=== PATIENT | female | born 1960 | race Caucasian/White ===

== ENCOUNTER → 2017-08-30 | Outpatient (CLI) | payer BC ==
[~2017-08-30] MED LIST: ACIDOPHILUS PO; ADIPEX-P37.5 MG; ADIPEX-P37.5 MG PO; AMBIEN CR6.25 MG PO; AMITIZA24 MCG PO; ASPIRIN 81M81 MG/TA2 PO; CALCIUM 600600 MG PO; CALCIUM500 MG PO; CIPRO 500MG TA500 MG PO; CIPRO500 MG PO; CLARITIN 1010 MG/TAB PO; CLARITIN D TAB1 TAB PO; CLONAZEPAM1 MG PO; CLONIDINE0.1 MG PO; COLACE 100100 MG/CAP PO; CYMBALTA 30MG30 MG PO; CYMBALTA 60MG60 MG PO; CYMBALTA30 MG PO; CYMBALTA60 MG PO; DESYREL 50MG50 MG PO; DIFLUCAN 100MG100 MG PO; ELMIRON 10100 MG/CA1 PO; ENJUVIA0.625 MG PO; FIBER TABLETS1 TAB PO; FISH OIL CONC1000 MG PO; FISH OIL1000 MG PO; FLAGYL 250250 MG/TAB; FLEXERIL10 MG PO; FLONASE0.05 MG/AC NS; GABAPENTIN100 MG PO; GLUCOPHAGE500 MG/TAB PO; HCTZ 25MG TAB25 MG PO; HCTZ 25MG25 MG PO; HCTZ12.5TAB PO; JANUVIA100 MG PO; KLONOPIN 1MG1 MG PO; LEVSIN0.125 M1 PO; LISINOPRIL30 MG PO; LORTAB 10/500 51 TAB PO; LORTAB 5/500 501 TAB PO; MACRODANTIN100 PO; MELATONIN3 M1 PO; MELATONIN5 MG PO; METFORMIN500 MG PO; MOTRIN 200200 MG/TAB PO; MOTRIN 800800 MG/TAB PO; MULTIPLE VITAMI1 TAB PO; NAPROSYN500 MG; NAPROSYN500 MG PO; NEOSPORIN1 OI1 TP; NEURONTIN400 MG/CAP PO; NORCO 325 MG-101 TAB PO; NORCO 325 MG-51 TAB PO; NORCO 325 MG-7.1 TAB PO; ORAJEL10% MM; PRELIEF PO; PREMARIN0.3 MG PO; PRIL40 PO; PYRIDIUM 100MG100 MG PO; PYRIDIUM200 M1 PO; ROXICODONE 55 MG/TAB PO; SIMVASTATIN40 MG PO; ST. JOSEPH81 M2 PO; STOOL SOFTENER100 M1 PO; STOOL SOFTENER100 M2 PO; SUPER B COMPLEX1 TA2 PO; TOPROL XL 50MG50 MG PO; VITAMIN B COMPL1 TA1 PO; VITAMIN C BUFF500 MG PO; VITAMIN C500 MG PO; VITAMIN D31000 I1 PO; VITAMIN D32000 IU PO; VITAMIN D3400 IU PO; ZESTRIL 10MG10 MG PO; ZESTRIL30 MG PO; ZOCOR 40MG40 MG PO
== END ==
LOC: MC.RAD 08:57
DX: Z12.31 Encounter for screening mammogram for malignant neoplasm of breast (principal)

== ENCOUNTER 2018-12-06 06:08 | Day surgery (SDC) | payer BC, OTHER ==
[~2018-12-06] VITALS: Ht 160 cm; Wt 104.4 kg
[~2018-12-06 06:08] MED LIST changes: +MELATONIN5 M1 SL; -MELATONIN5 MG PO
[2018-12-06] MEDS ORDERED: PRINIVIL40 MG PO (06:35)
[2018-12-06] MEDS ORDERED: OSCAL 500 TAB500 MG PO (06:37)
[2018-12-06] MEDS ORDERED: DESYREL 100MG100 MG PO (06:37)
[2018-12-06] MEDS ORDERED: BREO IH (06:38)
[2018-12-06] MEDS ORDERED: PROAIR HFA0.09 MG/AC IH (06:38)
[2018-12-06] MEDS ORDERED: MASON NATURAL500 MG PO (06:38)
[2018-12-06] MEDS ORDERED: FLONASE NASAL S16 GM NS (06:38)
[2018-12-06] MEDS ORDERED: EPA FISH OIL1 SGL PO (06:39)
[2018-12-06] MEDS ORDERED: ZANTAC 150MG T150 MG PO (06:39)
[2018-12-06] MEDS ORDERED: TYLENOL 8 HR PO (06:39)
[2018-12-06 06:56] VITALS: BP 140/69; PULSE 87; TEMP 98.2
[2018-12-06 09:15] VITALS: PULSE 112; TEMP 97.2
--- NOTE | 2018-12-06 09:15 | NUR ---
The patient returned to [place] from [facility] at this time. The patient apepars to have an increased cough and has already received a breathing treatment in the endoscopy suite. The patient has oxygen in place at 5L per oxymask. The patient's vital signs were attempted to be obtained but due to her cough the dynamap was unable to complete her blood pressure at this time. The patient's family is at her bedside at this time. Call light is within reach. Will continue to monitor the patient.
--- NOTE | 2018-12-06 09:26 | NUR ---
GIVEN TO BONIFACIO AT BEDSIDE POST PROCEDURE.
[2018-12-06 09:30] VITALS: BP 141/99; PULSE 129
--- NOTE | 2018-12-06 09:30 | NUR ---
The patient is sitting up in bed and continues to have an increased cough. The patient's family remains at her bedside. The patient states that she wants some "liquid medicine" for her cough. Will continue monitor the patient.
[2018-12-06 09:45] VITALS: BP 139/96; PULSE 112
--- NOTE | 2018-12-06 09:45 | NUR ---
The patient was given a dose of Codeine with Phenergan [address] Dominguez. She was also placed on 3L of oxygen kristan nasal cannula and appears to be tolerating it well. The patient's viral nasal swab was completed at this time. Family remains at her bedside. Will continue to monitor the patient.
[2018-12-06 10:00] VITALS: BP 121/46; PULSE 101
--- NOTE | 2018-12-06 10:00 | NUR ---
The patient states her "cough is getting better". Vital signs appear stable. Call light is within reach. Will continue to monitor the patient.
[2018-12-06 10:30] VITALS: BP 109/59; PULSE 96
--- NOTE | 2018-12-06 10:30 | NUR ---
Dr. Dominguez is at the patient's bedside to evaluate the patient for discharge to home. The patient verbalizes a desire to be discharged home.
--- NOTE | 2018-12-06 10:40 | NUR ---
Discharge instructions were reviewed with the patient and her family at this time. They all verbalized understanding and have no questions for the nurse at this time. The patient's IV to her right hand was removed and a pressure dressing was applied to the site. The nurse instructed the patient to get dressed and notify the staff when she is ready to be escorted out.
--- NOTE | 2018-12-06 10:47 | NUR ---
The patient was escorted out via wheelchair to a private vehicle by JESÚS Yonug. The patient was discharged on her home oxygen per nasal cannula. The patient's belongings and discharge paperwork were sent with her. The patient's family is present to drive her home.
== END 2018-12-06 10:47 | disposition home or self-care (01) ==
LOC: SDCO 06:08
DX: C34.31 Malignant neoplasm of lower lobe, right bronchus or lung (principal); J18.1 Lobar pneumonia, unspecified organism; Z87.891 Personal history of nicotine dependence; Z77.22 Contact with and (suspected) exposure to environmental tobacco smoke (acute) (chronic); J45.30 Mild persistent asthma, uncomplicated; E11.9 Type 2 diabetes mellitus without complications; Z79.899 Other long term (current) drug therapy; Z79.82 Long term (current) use of aspirin; G47.33 Obstructive sleep apnea (adult) (pediatric); G47.10 Hypersomnia, unspecified; G47.00 Insomnia, unspecified; K44.9 Diaphragmatic hernia without obstruction or gangrene; G25.81 Restless legs syndrome; M54.5 Low back pain; N30.10 Interstitial cystitis (chronic) without hematuria; M79.662 Pain in left lower leg; M79.661 Pain in right lower leg; M79.7 Fibromyalgia
CPT/HCPCS: J2704; J7120

== ENCOUNTER 2018-12-13 14:07 | Inpatient (IN) | payer BC, OTHER ==
[~2018-12-13] VITALS: Ht 152.4 cm; Wt 104.8 kg
[~2018-12-13 14:07] MED LIST changes: +BREO IH; +DESYREL 100MG100 MG PO; +EPA FISH OIL1 SGL PO; +FLONASE NASAL S16 GM NS; +MASON NATURAL500 MG PO; +OSCAL 500 TAB500 MG PO; +PRINIVIL40 MG PO; +PROAIR HFA0.09 MG/AC IH; +TYLENOL 8 HR PO; +ZANTAC 150MG T150 MG PO
[2018-12-13 14:33] LABS: BASO % 0.2 % (0.0-2.0); EOS # 0.1 (0.0-0.7); EOS % 0.6 % (0-4.0); GRAN # 10.3 (1.4-6.5); GRAN % 78.1 % (42.2-75.2); HEMATOCRIT 42.4 % (37.0-47.0); LYMPH # 1.8 (1.2-3.4); LYMPH % 13.6 % (20.0-51.0); MEAN CELL VOLUME 85 fl (80.0-100.0); MEAN CORPUSCULAR HEMOGLOBIN 28 pg (27.0-31.0); MEAN CORPUSCULAR HGB CONC 33 g/dl (33.0-37.0); MEAN PLATELET VOLUME 9.8 fl (7.4-10.4); MONO # 0.9 (0.1-0.6); MONO % 7.1 % (1.7-9.3); PLATELET COUNT 321 K/mm3 (130-400); RED BLOOD COUNT 4.99 M/mm3 (4.10-5.30); REDCELL DISTRIBUTION WIDTH-CV 14.7 % (11.5-14.5)
[2018-12-13 14:43] LABS: PROTHROMBIN TIME 11.6 SECONDS (9.7-12.8)
[2018-12-13 15:48] LABS: ALANINE AMINOTRANSFERASE 39 U/L (9-52); ALBUMIN 3.9 gm/dL (3.5-5.0); ALKALINE PHOSPHATASE 112 U/L (50-136); ANION GAP 11 mmol/L (7-16); AST,SGOT 24 U/L (15-37); BILIRUBIN,TOTAL 0.6 mg/dL (0.0-1.0); BLOOD UREA NITROGEN 17 mg/dL (7-17); CALCIUM 9.2 mg/dL (8.4-10.2); CARBON DIOXIDE 26 mmol/L (22-30); CHLORIDE 96 mmol/L (98-107); CREATININE, serum 0.53 mg/dL (0.52-1.25); GLUCOSE 157 mg/dL (74-106); POTASSIUM 4.2 mmol/L (3.4-5.0); SODIUM 132 mmol/L (137-145); TOTAL PROTEIN 7.2 gm/dL (6.4-8.2)
[2018-12-13] MEDS ORDERED: LIPITOR 40MG TA40 MG PO (15:59)
[2018-12-13] MEDS ORDERED: MELATONIN5 M1 SL (16:01)
[2018-12-13] MEDS ORDERED: TYLENOL 8 HR PO ×2 (16:01→16:03)
[2018-12-13 16:04] LABS: TROPONIN-I < 0.012 ng/mL (0.000-0.035)
[2018-12-13 18:05] VITALS: BP 174/76; PULSE 134; TEMP 98.3
--- NOTE | 2018-12-13 18:05 | NUR ---
Report received from laboratory associate, Gloria at 1708. Pt arrived to ICU bed 6 from ER via stretcher. Pt sitting up. States her breathing feels better after bipap in ER. Pt able to move over to ICU bed with assistance. Increased SOB after movement. Pt placed on Bipap mask by Respiratory therapy and HOB up at 90 degrees. Plan of care discussed with pt r/t intubation, bronchoscopy, central line and arterial line. Pt verbalizes understanding. Dr Dominguez and anesthesia notified of pt's arrival.
--- NOTE | 2018-12-13 18:20 | NUR ---
PT INTUBATED AT THIS TIME BY ANESTHESIA. DR. THOMAS AT BEDSIDE. PLACEMENT VISUALIZED BY COMMUNITY RELATIONS REPRESENTATIVE VIA GLIDASCOPE. CO2 DETECTOR WITH CONSISTANT COLOR CHANGE. BSH. CXR PENDING. ART AND CENTRAL LINES BEING PLACED AT THIS TIME. OETT SECURED 24CM @TEETH. PT PLACED ON SETTINGS PREVIOUSLY GIVEN BY DR. THOMAS. CMV 24, VT 450, +8 AND 60%. ABG IS ALSO PENDING AT THIS TIME.
--- NOTE | 2018-12-13 19:30 | NUR ---
Bedside report given to SIENA Hancock.
--- NOTE | 2018-12-13 19:30 | NUR ---
Rigoberto Olguin CRNA and Dr Dominguez at bedside at 1810. GEREMIAS Franklin intubated pt with 8.0 ETT, measured 23 @ teeth. Bilat breath sounds present. Total of 100mcg fentanyl, 2mg Versed, 20mg vecuronium, 15mg Etomidate and 50 mg propofol given. Please see Emar. OGT placed at 55cm at teeth. Placement checked by auscultation, and to LIS. small amt greenish drainage out of OGT. 16 fr swain placed with sterile technique and dark yellow, clear urine out. Left radial Nirmala place at 1840 by Rigoberto Olguin CRNA. Nirmala leveled and zeroed with good waveform. right SC TLC placed by Dr Dominguez at 1845. Bronchoscopy at bedside by Dr Dominguez at 1854. Small amt of blood tinged fluid sent to lab. Pt to CT of chest on monitor via icu bed at 1906. Pt remains sedated with propofol and fentanyl gtts. Pt HR ST 120s on monitor during CT. BP stable. Pt returned to ICU bed [address] at 1930.
--- NOTE | 2018-12-13 19:40 | NUR ---
PT TAKEN TO CT FOR SCAN OF CHEST. PT MANUALLY VENTILATED THERE AND BACK WITHOUT INCIDENT. PT PLACED BACK ON PREVIOUS SETTINGS UPON ARRIVAL BACK TO ICU. PT HANDED OFF TO HANNAH LORENZO.
[2018-12-13 20:00] VITALS: BP 114/82; PULSE 112; TEMP 98.5
--- NOTE | 2018-12-13 20:00 | NUR ---
Assessment completed and charted at this time, please see documentation for details. Patient tolerating ventilator well at this time. Dr. Dominguez outside of room at this time, patient at bedside. Dr. Burciaga has been notified for need for chest tube for patient. Will continue to monitor and assess.
[2018-12-13 20:10] VITALS: BP 174/76; PULSE 134; TEMP 98.3
[2018-12-13 20:20] LABS: ARTERIAL BLD GAS TCO2 CT 23.2; ARTERIAL BLOOD GAS BASE EXCESS -3.6 (-2-2); ARTERIAL BLOOD GAS HCO3 21.9 meq/L (22-26); ARTERIAL BLOOD GAS PCO2 41.7 mmHg (35-45); ARTERIAL BLOOD GAS pH 7.34 (7.35-7.45)
[2018-12-13 20:21] LABS: ARTERIAL BLOOD GAS PO2 135.9 mmHg (80-100)
--- NOTE | 2018-12-13 20:55 | NUR ---
Dr. Burciaga to perform right sided chest tube placement at this time, please see his notes for details. Patient tolerated well, will place to 20 cm water seal per Dr. Burciaga and continue to monitor.
[2018-12-13 23:13] LABS: PLEURAL FLUID RBC 132000 /mm3 (0-0); PLEURAL FLUID WBC 813 /mm3
[2018-12-13 23:16] LABS: GLUCOSE,PLEURAL FLUID 96 mg/dL; TOTAL PROTEIN,PLEURAL FLUID 4.6 gm/dL
[2018-12-13 23:48] LABS: PLEURAL FLUID APPEARANCE TURBID; PLEURAL FLUID COLOR RED
[2018-12-14] VITALS: BP 103/63; PULSE 80; TEMP 98.2
[2018-12-14 00:59] LABS: ARTERIAL BLOOD GAS PCO2 32.7 mmHg (35-45)
[2018-12-14 01:00] LABS: ARTERIAL BLD GAS O2 SATURATION 93.7 % (92-100); ARTERIAL BLOOD GAS HCO3 19.9 meq/L (22-26); ARTERIAL BLOOD GAS PO2 74.5 mmHg (80-100)
--- NOTE | 2018-12-14 01:11 | NUR ---
12/13/18 @ 2013 PT SETTINGS CHANGED TO DOCUMENTED SETTINGS PER DR. THOMAS. PREVIOUS SETTINGS WERE VT 420, RR 24, PEEP 5, 100% FIO2. SETTINGS WERE CHANGED DUE TO INCREASED PEAK AIRWAY PRESSURES. DR. THOMAS HAS ALSO SAID TO CALL ALL ABG RESULTS TO [facility] OVER THE NIGHT. HE WILL BE BACK IN AT 0800 12/14/18 TO VIEW OVERNIGHT RESULTS AND CHANGES. PT IS DOING WELL WITH CURRENT CHANGES. ABG TO BE DRAWN AND RESULTS TO BE CALLED TO [facility] AT 2030
--- NOTE | 2018-12-14 02:18 | NUR ---
12/13/18 @ 2044 PLEURAL FLUID SAMPLE GIVEN TO THIS RT TO RUN FOR A PH. NOT A CRITICLE VALUE CALLED RN WITH RESULT COMPUTER PROBLEMS MAKE IT UNABLE TO PUT INTO COMPUTER AT THIS TIME WILL ASSESS AND TRY TO FIX IN THE A.M
--- NOTE | 2018-12-14 02:22 | NUR ---
NO ORAL CARE DONE BY MERY YOUNG ON 12/13/18 WILL BEGIN 12/14/18
[2018-12-14 04:00] VITALS: BP 103/63; PULSE 90
--- NOTE | 2018-12-14 05:09 | NUR ---
Patient easily aroused on sedation. Combative to ventilator at times, no sedation vacation at this time.
[2018-12-14 05:38] LABS: ARTERIAL BLD GAS O2 SATURATION 90.4 % (92-100); ARTERIAL BLD GAS TCO2 CT 22.7; ARTERIAL BLOOD GAS BASE EXCESS -3.7 (-2-2); ARTERIAL BLOOD GAS HCO3 21.5 meq/L (22-26); ARTERIAL BLOOD GAS PCO2 39.7 mmHg (35-45); ARTERIAL BLOOD GAS PO2 65.6 mmHg (80-100); ARTERIAL BLOOD GAS pH 7.35 (7.35-7.45)
[2018-12-14 05:43] LABS: MEAN CELL VOLUME 86 fl (80.0-100.0); MEAN CORPUSCULAR HGB CONC 33 g/dl (33.0-37.0); PLATELET COUNT 269 K/mm3 (130-400); RED BLOOD COUNT 4.16 M/mm3 (4.10-5.30); REDCELL DISTRIBUTION WIDTH-CV 14.6 % (11.5-14.5)
--- NOTE | 2018-12-14 05:46 | NUR ---
PT HAS NOT BEEN INTUBATED FOR 24 HOURS THEREFORE NO WEANING ASSESSMENT HAS BEEN TRIED AND PT IS TO REMAIN ON DOCUMENTED SETTINGS.
[2018-12-14 05:47] LABS: INR 1.1 (0.8-3.0); PROTHROMBIN TIME 12.5 SECONDS (9.7-12.8)
[2018-12-14 05:49] LABS: HEMATOCRIT 35.8 % (37.0-47.0); HEMOGLOBIN 11.8 g/dl (12.5-16.0); MEAN CORPUSCULAR HEMOGLOBIN 28 pg (27.0-31.0)
[2018-12-14 05:53] LABS: ALANINE AMINOTRANSFERASE 35 U/L (9-52); ALBUMIN 3.2 gm/dL (3.5-5.0); ALKALINE PHOSPHATASE 81 U/L (50-136); ANION GAP 10 mmol/L (7-16); AST,SGOT 22 U/L (15-37); BILIRUBIN,TOTAL 0.3 mg/dL (0.0-1.0); BLOOD UREA NITROGEN 24 mg/dL (7-17); CALCIUM 8.4 mg/dL (8.4-10.2); CARBON DIOXIDE 21 mmol/L (22-30); CHLORIDE 100 mmol/L (98-107); CREATININE, serum 0.85 mg/dL (0.52-1.25); GLUCOSE 221 mg/dL (74-106); MAGNESIUM 1.9 mg/dL (1.6-2.3); PHOSPHOROUS 4.5 mg/dL (2.5-4.5); POTASSIUM 4.1 mmol/L (3.4-5.0); SODIUM 132 mmol/L (137-145); TOTAL PROTEIN 5.9 gm/dL (6.4-8.2)
[2018-12-14 06:11] LABS: TROPONIN-I < 0.012 ng/mL (0.000-0.035)
--- NOTE | 2018-12-14 07:30 | NUR ---
Report received from Santi WREN and care resumed.
--- NOTE | 2018-12-14 07:55 | NUR ---
Dr Dominguez in to see pt at this time. Vent changes made and RT notified.
[2018-12-14 08:00] VITALS: BP 114/56; PULSE 89; TEMP 97.1
--- NOTE | 2018-12-14 08:04 | NUR ---
PT'S SETTINGS CHANGED AT THIS TIME PER DR. THOMAS AT BEDSIDE.
[2018-12-14 08:25] LABS: BAND 2 % (0-10); LYMPHOCYTE 6 % (20.0-51.0); NEUTROPHILS 92 % (42.0-75.2)
[2018-12-14 08:26] LABS: PLATELET ESTIMATE NORMAL (NORMAL)
--- NOTE | 2018-12-14 09:50 | NUR ---
Dr Burciaga in to see pt. Verbal order received to place chest tube to suction.
--- NOTE | 2018-12-14 10:50 | NUR ---
SW attended clinical rounds, then met with patient's and family in the waiting room. Patient lives at home with her . She does not use any home health services. She does use oxygen at home but no other medical equipment. Patient's reports she doesn't have a DPOA for healthcare decisions. SEJAL informed him that if they were interested in that the form can be provided. No other needs at this time but SW will continue to follow.
--- NOTE | 2018-12-14 11:00 | NUR ---
Dr Bowie in to see pt at this time.
[2018-12-14 11:53] LABS: ARTERIAL BLD GAS O2 SATURATION 94.4 % (92-100); ARTERIAL BLD GAS TCO2 CT 22.2; ARTERIAL BLOOD GAS BASE EXCESS -2.8 (-2-2); ARTERIAL BLOOD GAS HCO3 21.2 meq/L (22-26); ARTERIAL BLOOD GAS PCO2 33.9 mmHg (35-45); ARTERIAL BLOOD GAS PO2 75.3 mmHg (80-100); ARTERIAL BLOOD GAS pH 7.41 (7.35-7.45)
[2018-12-14 12:00] VITALS: BP 94/45; PULSE 70; TEMP 96.3
--- NOTE | 2018-12-14 12:20 | NUR ---
Pt continues to wake with speech and is able to follow simple commands. Denies any pain. IV fentanly remains infusing. VSS. Family at bedside and updated on plan of care. Will continue to follow.
[2018-12-14 16:00] VITALS: BP 105/51; PULSE 87; TEMP 98.1
--- NOTE | 2018-12-14 17:20 | NUR ---
Pt fully awake with sedation vacation and able to follow simple commands. Pt coughing alot and becomes very anxious. Sedation turned back up as no plans to wean or extubate today per Dr Dominguez. Will continue to follow.
--- NOTE | 2018-12-14 19:02 | NUR ---
Report given to Santi WREN and care transfered.
--- NOTE | 2018-12-14 19:44 | NUR ---
Patient assessment completed and charted at this time, please see documentation for details. Patient resting in bed, tolerating ventilator well at this time. at bedside, questions and concerns addressed, will continue to monitor and assess.
[2018-12-14 20:00] VITALS: BP 107/55; PULSE 78; TEMP 97.5
[2018-12-15] VITALS: BP 117/64; PULSE 72; TEMP 97
--- NOTE | 2018-12-15 03:50 | NUR ---
Patient tolerating ventilator adequately at this time. Arouses easily. Assessment completed, no acute findings. Will continue to monitor and assess.
[2018-12-15 04:00] VITALS: BP 117/70; PULSE 92; TEMP 98
[2018-12-15 04:53] LABS: HEMOGLOBIN 11.3 g/dl (12.5-16.0); MEAN CELL VOLUME 88 fl (80.0-100.0); MEAN CORPUSCULAR HEMOGLOBIN 29 pg (27.0-31.0); MEAN CORPUSCULAR HGB CONC 33 g/dl (33.0-37.0); PLATELET COUNT 298 K/mm3 (130-400); RED BLOOD COUNT 3.95 M/mm3 (4.10-5.30); REDCELL DISTRIBUTION WIDTH-CV 14.6 % (11.5-14.5)
[2018-12-15 04:56] LABS: HEMATOCRIT 34.6 % (37.0-47.0)
--- NOTE | 2018-12-15 05:00 | NUR ---
Patient arouses easily, fighting ventilator when not sedated. No sedation vacation performed at this time.
[2018-12-15 05:06] LABS: BILIRUBIN,TOTAL 0.2 mg/dL (0.0-1.0); CALCIUM 7.6 mg/dL (8.4-10.2); CREATININE, serum 0.59 mg/dL (0.52-1.25); MAGNESIUM 2.2 mg/dL (1.6-2.3); PHOSPHOROUS 3.7 mg/dL (2.5-4.5); POTASSIUM 4.1 mmol/L (3.4-5.0); TOTAL PROTEIN 5.9 gm/dL (6.4-8.2)
[2018-12-15 05:11] LABS: PROTHROMBIN TIME 11.6 SECONDS (9.7-12.8)
[2018-12-15 05:12] LABS: BAND 3 % (0-10); LYMPHOCYTE 10 % (20.0-51.0); NEUTROPHILS 85 % (42.0-75.2); PLATELET ESTIMATE NORMAL (NORMAL)
[2018-12-15 05:13] LABS: HYPOCHROMIA 1+
[2018-12-15 05:14] LABS: OVALOCYTES 1+
[2018-12-15 05:48] LABS: ARTERIAL BLD GAS O2 SATURATION 95.6 % (92-100); ARTERIAL BLD GAS TCO2 CT 19.9; ARTERIAL BLOOD GAS BASE EXCESS -6.7 (-2-2); ARTERIAL BLOOD GAS HCO3 18.7 meq/L (22-26); ARTERIAL BLOOD GAS PO2 89.6 mmHg (80-100); ARTERIAL BLOOD GAS pH 7.32 (7.35-7.45)
--- NOTE | 2018-12-15 06:27 | NUR ---
PER RN PATIENT NOT GETTING A SEDATION VACATION THEREFORE SMART CARE WAS NOT DONE. PT REMAINED ON DOCUMENTED SETTINGS. NO DISTRESS NOTED.
--- NOTE | 2018-12-15 07:04 | NUR ---
Report given to SIENA Rhoades at this time. Passing off cares of patient.
--- NOTE | 2018-12-15 07:20 | NUR ---
Report received from Santi WREN and care resumed.
--- NOTE | 2018-12-15 07:50 | NUR ---
Dr Dominguez in to see pt at this time.
[2018-12-15 08:00] VITALS: BP 119/43; PULSE 103; TEMP 96.7
[2018-12-15 08:11] LABS: ARTERIAL BLD GAS O2 SATURATION 93.3 % (92-100); ARTERIAL BLD GAS TCO2 CT 20.2; ARTERIAL BLOOD GAS BASE EXCESS -6.5 (-2-2); ARTERIAL BLOOD GAS HCO3 19.1 meq/L (22-26); ARTERIAL BLOOD GAS PO2 75.1 mmHg (80-100); ARTERIAL BLOOD GAS pH 7.32 (7.35-7.45)
[2018-12-15 09:17] LABS: TRIGLYCERIDE 590 mg/dL
[2018-12-15 09:32] LABS: ACETONE,SERUM NEGATIVE
[2018-12-15 09:33] LABS: CREATINE KINASE 51 U/L (30-135)
--- NOTE | 2018-12-15 11:20 | NUR ---
Dr Bowie in to see pt at this time.
--- NOTE | 2018-12-15 11:35 | NUR ---
Dr Burciaga in to see pt.
[2018-12-15 12:00] VITALS: BP 118/53; PULSE 94; TEMP 97.2
--- NOTE | 2018-12-15 12:20 | NUR ---
Assessment complete. Pt continues to get very restless/agitated with stimuli. 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 Will continue to titrate versed as needed for RASS -2.
[2018-12-15 16:00] VITALS: BP 136/57; PULSE 83; TEMP 98.8
--- NOTE | 2018-12-15 16:20 | NUR ---
Dr Singleton in to see pt at this time. Did talk with family and stated not alot he could do at this time with pt being so sick but that he would continue to follow and check in. Questions answered. Will continue to follow.
--- NOTE | 2018-12-15 16:49 | NUR ---
Report given to Mac WREN and sona tranferred.
--- NOTE | 2018-12-15 17:10 | NUR ---
Report recieved from SIENA Rhoades. Pt hypertensive up into the systolic>200 when pt turned with observed aggitation. After pt left undisturbed systolic BP was in 120's.
--- NOTE | 2018-12-15 19:30 | NUR ---
Bedside report received from SIENA Watts. All lines and medications reviewed. Transfer of care at this time.
[2018-12-15 20:00] VITALS: BP 119/68; PULSE 85; TEMP 97.9
--- NOTE | 2018-12-15 20:00 | NUR ---
Patient is resting on the vent at this time. She is very alert and follows commands. Patient attempts to spell out words on this nurse's arm. She spells out the word "poo". Patient cleaned up using wipes and pericare provided. Assessment reveals coarse lungs sounds with wheezes in the upper lobes. Patient has hypoactive bowel sounds. NG tube is at 45cm even with securement. Advanced tube to 60cm and resecured. Checked placement with gastric residuals pulled back as well as auscultation. Patient has no complaints of pain at this time, she shakes her head no when asked. Repositioned for comfort. No further needs at this time. Will continue to monitor. Call light within reach.
[2018-12-16] VITALS: BP 121/62; PULSE 76; TEMP 99
--- NOTE | 2018-12-16 | NUR ---
Assessment complete. Patient is much more alert and restless at this time. She tries to sit all the way forward on the vent and swings her legs to the side of the bed. Versed drip increased and patient repositioned in bed. Attempted to reorient the patient multiple times, but she just shakes her head no and tries to sit forward pulling on the restraints. RT at the bedside to help calm patient. Patient finally starts to settle down after Versed increase kicks in. Patient now resting quietly on the vent, she is relaxed and still arousable. No other needs at this time. Will continue to monitor. Call light within reach.
[2018-12-16 04:00] VITALS: BP 122/70; PULSE 92; TEMP 98.8
--- NOTE | 2018-12-16 04:00 | NUR ---
Assessment complete. Patient resting in bed on the ventilator. She opens her eyes to any sound or movement in the room. Patient continues to follow commands. Lungs remain coarse and diminished. No complaints of pain at this time. Vital signs stable. No further needs. Will continue to monitor. Call light within reach.
--- NOTE | 2018-12-16 04:50 | NUR ---
Patient requesting to be cleaned up at this time. Pericare provided. When turning the patient she starts coughing against and fighting the ventilator. Patient repositioned and SIENA Malone and this nurse attempted to reorient and talk patient down to breathing with the machine and relaxing. Patient remained agitated and began sitting upright on the vent and trying to get out of bed. Patient pulled at restraints and tried swinging her legs off of the bed. Versed increased to 10mg. Patient slowly became less agitate, but remains restless. Patient is now max dosage on fentanyl and versed. Will call [facility] for order of precedex.
--- NOTE | 2018-12-16 05:05 | NUR ---
Called [facility] at this time and spoke with Dr. Chapman. Patient is on max doses for fentanyl and versed. Requesting Precedex drip to be added. Dr. Chapman states that he will put in orders.
[2018-12-16 05:08] LABS: HEMOGLOBIN 10.7 g/dl (12.5-16.0); MEAN CELL VOLUME 87 fl (80.0-100.0); MEAN CORPUSCULAR HEMOGLOBIN 28 pg (27.0-31.0); MEAN CORPUSCULAR HGB CONC 32 g/dl (33.0-37.0); MEAN PLATELET VOLUME 10.4 fl (7.4-10.4); PLATELET COUNT 296 K/mm3 (130-400); RED BLOOD COUNT 3.82 M/mm3 (4.10-5.30); REDCELL DISTRIBUTION WIDTH-CV 14.9 % (11.5-14.5)
[2018-12-16 05:09] LABS: HEMATOCRIT 33.3 % (37.0-47.0)
--- NOTE | 2018-12-16 05:09 | NUR ---
Precedex orders received at this time from Dr. Chapman.
[2018-12-16 05:14] LABS: PROTHROMBIN TIME 11.8 SECONDS (9.7-12.8)
--- NOTE | 2018-12-16 05:18 | NUR ---
Called and spoke with Dr. Dominguez regarding Precedex drip. Says he is ok with the drip being started.
[2018-12-16 05:21] LABS: ALBUMIN 2.8 gm/dL (3.5-5.0); BILIRUBIN,TOTAL 0.1 mg/dL (0.0-1.0); CALCIUM 8.7 mg/dL (8.4-10.2); CREATININE, serum 0.56 mg/dL (0.52-1.25); MAGNESIUM 2.2 mg/dL (1.6-2.3); PHOSPHOROUS 2.9 mg/dL (2.5-4.5); POTASSIUM 4.3 mmol/L (3.4-5.0); TOTAL PROTEIN 5.6 gm/dL (6.4-8.2)
--- NOTE | 2018-12-16 05:54 | NUR ---
WHEN SEDATION TURNED OFF PT'S BP WENT UP TO 230/140, HR UP TO 133, RR UP TO 30. PT PUT BACK ON SEDATION AND CPAP TRIAL NOT DONE.
[2018-12-16 06:26] LABS: ARTERIAL BLD GAS O2 SATURATION 95.5 % (92-100); ARTERIAL BLOOD GAS BASE EXCESS -3.2 (-2-2); ARTERIAL BLOOD GAS HCO3 21.2 meq/L (22-26); ARTERIAL BLOOD GAS PCO2 35.7 mmHg (35-45); ARTERIAL BLOOD GAS PO2 83.7 mmHg (80-100); ARTERIAL BLOOD GAS pH 7.39 (7.35-7.45)
[2018-12-16 07:10] LABS: BAND 1 % (0-10); LYMPHOCYTE 9 % (20.0-51.0); NEUTROPHILS 88 % (42.0-75.2); PLATELET ESTIMATE NORMAL (NORMAL)
--- NOTE | 2018-12-16 07:25 | NUR ---
Report received from Heather WREN and care resumed.
--- NOTE | 2018-12-16 07:30 | NUR ---
Bedside report given to SIENA Rhoades
--- NOTE | 2018-12-16 07:50 | NUR ---
Dr Dominguez in to see pt. Verbal order to try and decrease sedation and attempt smart care.
[2018-12-16 08:00] VITALS: BP 175/85; PULSE 67; TEMP 98.5
--- NOTE | 2018-12-16 09:28 | NUR ---
Pt remains sedated at this time. Versed and fentanyl remain off and precedex decreased. If pt is able to wake up enough will attempt smart care trial. No concerns at this time. Will continue to follow.
--- NOTE | 2018-12-16 09:55 | NUR ---
Patient resting; Subsurface Augmentee Operator offered prayer as she slept.
--- NOTE | 2018-12-16 11:10 | NUR ---
Dr Bowie in to see pt at this time.
--- NOTE | 2018-12-16 11:26 | NUR ---
Dr Bowie had family meeting with and kids. Will still try to get pt awake enough for extubation but family states pt would not want to be reintubated if things do not go well. Dr Bowie in agreement and will make pt a DNR. Will continue to follow.
[2018-12-16 12:00] VITALS: BP 173/77; PULSE 67; TEMP 97.6
[2018-12-16 16:00] VITALS: BP 149/83; PULSE 74; TEMP 97.8
--- NOTE | 2018-12-16 17:10 | NUR ---
Pt on precedex for sedation and is currently pulling at lines, reaching for vent, and banging hands against bed rails. No sedation vacation at this time, precedex needed to be increased to prevent self extubation.
--- NOTE | 2018-12-16 17:23 | NUR ---
INCREASED FI02 AT THIS TIME DUE TO SPO2 RANGING BETWEEN 90-91% ON 40%. INCREASED TO 45% AT THIS TIME.
--- NOTE | 2018-12-16 19:44 | NUR ---
Bedside report given to Teena WREN and Vanda WREN and care tranfered.
[2018-12-16 20:00] VITALS: BP 150/84; PULSE 81; TEMP 97.7
--- NOTE | 2018-12-16 21:05 | NUR ---
CHANGED FILTER AND DUMPED WATER DRAINS.
[2018-12-17] VITALS (8 sets, daily range): BP systolic 123–178; BP diastolic 60–122; PULSE 72–146; TEMP 97.5–98.9
[2018-12-17 05:07] LABS: HEMOGLOBIN 12.2 g/dl (12.5-16.0); MEAN CELL VOLUME 85 fl (80.0-100.0); MEAN CORPUSCULAR HEMOGLOBIN 28 pg (27.0-31.0); MEAN CORPUSCULAR HGB CONC 33 g/dl (33.0-37.0); MEAN PLATELET VOLUME 9.8 fl (7.4-10.4); PLATELET COUNT 326 K/mm3 (130-400); RED BLOOD COUNT 4.31 M/mm3 (4.10-5.30); REDCELL DISTRIBUTION WIDTH-CV 14.5 % (11.5-14.5)
[2018-12-17 05:14] LABS: HEMATOCRIT 36.6 % (37.0-47.0)
--- NOTE | 2018-12-17 05:15 | NUR ---
PT IMPULSIVE AT TIMES WHEN SHE WAKES UP, FOLLOWS COMMANDS. PT ALSO ON PRECEDEX WELL.
[2018-12-17 05:18] LABS: PROTHROMBIN TIME 11.8 SECONDS (9.7-12.8)
[2018-12-17 05:19] LABS: ALBUMIN 2.9 gm/dL (3.5-5.0); BILIRUBIN,TOTAL 0.3 mg/dL (0.0-1.0); CALCIUM 8.9 mg/dL (8.4-10.2); CREATININE, serum 0.54 mg/dL (0.52-1.25); MAGNESIUM 2.1 mg/dL (1.6-2.3); POTASSIUM 4.4 mmol/L (3.4-5.0); TOTAL PROTEIN 5.7 gm/dL (6.4-8.2)
[2018-12-17 05:30] LABS: ARTERIAL BLD GAS O2 SATURATION 96.2 % (92-100); ARTERIAL BLOOD GAS BASE EXCESS -0.5 (-2-2); ARTERIAL BLOOD GAS HCO3 21.1 meq/L (22-26); ARTERIAL BLOOD GAS PCO2 26.6 mmHg (35-45); ARTERIAL BLOOD GAS PO2 79.2 mmHg (80-100); ARTERIAL BLOOD GAS pH 7.52 (7.35-7.45)
[2018-12-17 07:42] LABS: LYMPHOCYTE 8 % (20.0-51.0); NEUTROPHILS 91 % (42.0-75.2); PLATELET ESTIMATE NORMAL (NORMAL)
--- NOTE | 2018-12-17 09:59 | NUR ---
PT PLACED ON SMART CARE AT THIS TIME. PT IS AWAKE/ALERT. PT TOLERATING IT WELL AT THIS TIME. PT'S IS AT BEDSIDE AT THIS TIME.
--- NOTE | 2018-12-17 10:30 | NUR ---
Smart Care complete with success. Pt extubated with Patience,RT and at bedside holding hand of pt. Oral suctioning performed - instructed on how to suction self for productive coughing. OM mask applied at 5L/min. Pt AAOx3 with appropriate speech. More family in waiting room and will come to visit 2 at a time. Pt is self aware of bowel moevment, bed [place] utilized without difficutly. Pt stating "next time I like to just get up and walk to bedside commode" Call light within reach, resting peacfully with no dyspnea or use of accessory breathing muscles
--- NOTE | 2018-12-17 10:30 | NUR ---
PT EXTUBATED ONCE VENTILATOR REACHED PS OF [address] VILLA. PT PLACED ON 5L OM AT THIS TIME. VITAL SIGNS STABLE. NO STRIDOR AUSCULTATED AT THIS TIME. WILL CONTINUE TO MONITOR. ABG PENDING IN 1 HOUR.
--- NOTE | 2018-12-17 20:06 | NUR ---
PRN benadryl administered for suspected drug reaction to dukarina neb. [facility] notified. Nurse at bedside. Patient visible shaking, skin on face flushed and reporting a burning sensation in chest. States the pain is midline and is unchanged with deep breathing. RT obtaining EKG at this time.
--- NOTE | 2018-12-17 20:28 | NUR ---
After breathing tx heart rate went from 126 to 151. About 15 min after tx pt started complaining of chest pain and legs burning and shortness of breath and headache. RN gave benadryl IV. We called [facility] doctor to inform them they asked for EKG which was done. Then pt's sats started dropping so pt put on 10L oxymask to maintain sats above 90%. When [facility] doctor called back I asked if we could change medication to Xopenex since her heart rate had gone up. [facility] doctor agreed and said to change to Xopenex 0.63mg Q6. [facility] doctor also ordered for RN to restart precidex. RN in room starting that.
--- NOTE | 2018-12-17 20:30 | NUR ---
Received verbal order to start precedex drip due to possible withrawl after discontinuation with extubation. Verbal order to start up to 0.5 mcg/kg/hr. When paper order was sent stated 0.5mg/kg/min. Called to clarify this order. Received order to use hospital policy. Told [facility] nurse that drip was initiated at 0.5 mcg/kg/hr, received ok for initial rate.
--- NOTE | 2018-12-17 21:08 | NUR ---
PT'S SATS ARE HANGING OUT AT 88% ON 12L OXYMASK. PT PUT UP TO 15L OXYMASK SATS ARE STILL HANGING OUT AT 90%.
--- NOTE | 2018-12-17 21:30 | NUR ---
Notified hospitalist that patient's precedex was re-started per [facility]. Received ok to continue precedex even while on comfort care. Can discontinue if comfort acheived with ativan and morphine.
--- NOTE | 2018-12-17 21:30 | NUR ---
Rt discussed using BIPAP with patient if respiratory disress increased. Patient does not want BIPAP. This nurse spoke with both patient and family and both stated that patient wishes to go comfort care. This was discussed with hospitalist and hospitalist put in orders. [facility] also notified.
--- NOTE | 2018-12-17 21:55 | NUR ---
Popsicle offered per patient request. Switched from oxy mask to 5 L nc. Tolerating well. Family at bedside.
[2018-12-18] VITALS: BP 119/68; PULSE 90; TEMP 97.7
--- NOTE | 2018-12-18 01:49 | NUR ---
PT DID NOT WANT AT THIS TIME IS NOW COMFORT CARE.
[2018-12-18 04:00] VITALS: BP 123/67; PULSE 87; TEMP 98.5
[2018-12-18 04:32] VITALS: BP 123/67; PULSE 69
--- NOTE | 2018-12-18 06:15 | NUR ---
Hospitalist called to notify that patient has transfer orders to medical floor. Awaiting bed assignment.
--- NOTE | 2018-12-18 06:20 | NUR ---
This RN called Dr. Kwon to notify about pt receiving precedex during this shift for possible withdrawal symptoms. Pt off of precedex at 0430 AM.
--- NOTE | 2018-12-18 06:45 | NUR ---
Pt transferred to medical floor via bed transport. report given from SIENA Dickinson to SIENA Abarca. pt oriented to new room. spouse present during transfer. all belongings with pt.
--- NOTE | 2018-12-18 06:46 | NUR ---
Called report to SIENA Abarca. Patient in process of transfering up to medical floor.
--- NOTE | 2018-12-18 07:55 | NUR ---
Assessment completed, alert/oriented, patient is a DNR and has decided she wantts Comfort cares only from this point on, she does not want vital signs/ labs/ meds/ or any other treatments that are not comfort related measures, will make talk with and make sure the proper orders are put in place and all other treatments are discontinued per patient and family request, is present at bedside, she is still in droplet p/c for influenza, she wants to eat a general diet, denies needs at this time otherwise
--- NOTE | 2018-12-18 21:58 | NUR ---
Pt resting comfortably in recliner, provided linen change and helped Pt to bed, family in room with Pt.
--- NOTE | 2018-12-19 05:04 | NUR ---
Pt slept well during the night, no C/O pain during the shift, VS have remained stable. Pt has been NPO since midnight for a procedure this AM.
--- NOTE | 2018-12-19 05:23 | NUR ---
Pt was able to sleep between disturbances, she has been receiving oral roxinol Q1H and her pain has been well controlled, Family has been with the Pt during the night, VS have been stable.
--- NOTE | 2018-12-19 07:15 | NUR ---
Sitting up in the bed at this time. The is at the bedside. No pain reported at this time.
[2018-12-19 08:07] VITALS: BP 124/92; PULSE 112; TEMP 99.2
--- NOTE | 2018-12-19 09:35 | NUR ---
SEJAL collaborated with palliative care nurse, Hannah. The patient is on comfort measures and she would like to pursue with the [facility]. A [facility]. Jonathan, with [facility], is to meet with the patient and patient's family today. The patient did complete DPOA-HC. SEJAL and Hannah witnessed the patient sign. SEJAL to continue to follow.
--- NOTE | 2018-12-19 10:56 | NUR ---
Have met this family several times this am to discuss transfer to [facility]. Jonathan, with [facility], will plan on being here early afternoon and then pt can ask any questions she has and speak with family about financial oobligations. They are then planning on transfer to [facility] by ambulance if all parties are agreeable. We have reviewed pros and cons of chest tube and swain being removed vs keeping in place and pt will make final decision. Information has been faxed to [facility] for their review.
[2018-12-19] MEDS ORDERED: DULCOLAX S10 MG/SUPP RC (14:43)
[2018-12-19] MEDS ORDERED: TRANSDERM-0.5 MG/21 TD (14:43)
[2018-12-19] MEDS ORDERED: ZOFRAN ODT4 MG PO (14:43)
[2018-12-19] MEDS ORDERED: ATIVAN 0.50.5 MG/TAB PO (14:45)
[2018-12-19] MEDS ORDERED: ROXANOL 20MG20 MG/ML SL (14:45)
--- NOTE | 2018-12-19 14:54 | NUR ---
Jonathan, at [facility], reports that they can accept the patient. The patient is to discharge today, 12/19, to [facility]. Transportation was set for 1530, via [facility]. SEJAL informed the patient's family member and nurse. They were all in agreeance. No additional needs at this time.
--- NOTE | 2018-12-19 15:35 | NUR ---
The triple lumen cath was removed per this nurse at this time. No difficulty and the tip was intact. EMS here to transport to [facility] at this time. Arce and chest tube will remain in place at transfer.
--- NOTE | 2018-12-19 15:49 | NUR ---
Report was called to [facility] to SIENA Ramos to resume care.
== END 2018-12-19 15:50 | disposition hospice, inpatient (51) | DRG 208 ==
LOC: COL.ER 14:07 → ICU 15:39 → MEDICAL 12-18 07:06
PROVIDERS: Anesthesiology Critical Care Medicine; Emergency Medicine; Internal Medicine; Internal Medicine Pulmonary Disease; ADMIT Family Medicine
PROC: 5A1945Z Respiratory Ventilation, 24-96 Consecutive Hours (ICD-10-PCS; principal; 2018-12-13)
PROC: 0B958ZZ Drainage of Right Middle Lobe Bronchus, Via Natural or Artificial Opening Endoscopic (ICD-10-PCS; 2018-12-13)
PROC: 0B968ZZ Drainage of Right Lower Lobe Bronchus, Via Natural or Artificial Opening Endoscopic (ICD-10-PCS; 2018-12-13)
PROC: 0B988ZZ Drainage of Left Upper Lobe Bronchus, Via Natural or Artificial Opening Endoscopic (ICD-10-PCS; 2018-12-13)
PROC: 0B988ZZ Drainage of Left Upper Lobe Bronchus, Via Natural or Artificial Opening Endoscopic (ICD-10-PCS; 2018-12-13)
PROC: 0W9930Z Drainage of Right Pleural Cavity with Drainage Device, Percutaneous Approach (ICD-10-PCS; 2018-12-14)
DX: J96.01 Acute respiratory failure with hypoxia (principal); C34.31 Malignant neoplasm of lower lobe, right bronchus or lung; J91.0 Malignant pleural effusion; Z68.41 Body mass index [BMI] 40.0-44.9, adult; Z51.5 Encounter for palliative care; Z66 Do not resuscitate; J98.11 Atelectasis; E87.2 Acidosis; E87.1 Hypo-osmolality and hyponatremia; E46 Unspecified protein-calorie malnutrition; B34.8 Other viral infections of unspecified site; I10 Essential (primary) hypertension; E78.5 Hyperlipidemia, unspecified; J45.909 Unspecified asthma, uncomplicated; Z87.891 Personal history of nicotine dependence; E66.01 Morbid (severe) obesity due to excess calories; R73.9 Hyperglycemia, unspecified
CPT/HCPCS: 99233-AI; A4216; J0360; J0692; J1200; J1650; J1815; J2060; J2250; J2270; J2704; J2920; J2930; J3010; J3370; J3475; J7030; J7050; Q9967